=== PATIENT | male | born 1945 | race Caucasian/White ===

== ENCOUNTER → 2016-12-17 | Outpatient (CLI) | payer MEDICARE, OTHER ==
[~2016-12-17] MED LIST: CHOL20007 PO; GABA250S2 PO; GLIM1TAB2 PO; INSLANTI SC; LIS5T GT; MAGN400T5 OR; RIVA20TA PO; SIMV-8 PO; TRAM50TA2 PO
== END | disposition home or self-care (01) ==
LOC: Rad HDHVI 13:38
PROVIDERS: ATTEND Internal Medicine Cardiovascular Disease
DX: I73.9 Peripheral vascular disease, unspecified (principal); I10 Essential (primary) hypertension
CPT/HCPCS: 93306; 93926

== ENCOUNTER → 2016-12-31 | Outpatient (CLI) | payer MEDICARE, OTHER ==
[~2016-12-31] MED LIST changes: +DIPYRIDAMOLE (5MG/ML) 10 ML VIAL IV ONE; +DIPYRIDAMOLE 60 MG in D5W 5% 50 ML IV SCH
[2016-12-31 12:21] LABS: Basophils # (auto) 0 uL; Basophils % (auto) 0.6 % (0.0-2.0); CONDITION Y; Eosinophils # (auto) 0.1 uL; Eosinophils % (auto) 2.4 % (0.0-7.0); Hematocrit 40.7 % (41.0-53.0); Hemoglobin 13.6 g/dL (13.5-17.5); Lymphocytes # (auto) 1.1 uL; Lymphocytes % (auto) 25.6 % (10.0-50.0); Mean Corpuscular Hemoglobin 32.4 pg (28.0-32.0); Mean Corpuscular Hgb Conc. 33.5 g/dL (32.0-36.0); Mean Corpuscular Volume 96.8 fL (80.0-100.0); Mean Platelet Volume 10.3 fL (7.4-10.4); Monocytes # (auto) 0.3 uL; Monocytes % (auto) 6.4 % (0.0-12.0); Neutrophils # (auto) 2.9 uL; Platelet Count (auto) 149 10^3/uL (140-450); Red Cell Distribution Width 13.8 % (11.6-16.0); White Blood Cell 4.4 10^3/uL (4.4-10.8)
[2016-12-31 12:23] LABS: Urine Bilirubin Negative (Negative); Urine Blood Negative /uL (Negative); Urine Color Yellow (Yellow); Urine Glucose 4+ mg/dL (Normal); Urine Ketone Negative (Negative); Urine Nitrite Negative (Negative); Urine Urobilinogen Normal (Negative); Urine pH 5.5 (5.0-8.0)
[2016-12-31 12:37] LABS: Albumin 3.8 g/dL (3.4-5.0); BUN/Creatinine Ratio 17.5; Bilirubin, Direct 0.2 mg/dL (0-0.2); Bilirubin, Total 0.9 mg/dL (0.2-1.0); Calcium 9.2 mg/dL (8.5-10.1); Potassium 4.2 mmol/L (3.5-5.1); Total Protein 7.1 g/dL (6.4-8.2)
== END | disposition home or self-care (01) ==
LOC: Rad HDHVI 07:59
PROVIDERS: ATTEND Internal Medicine Cardiovascular Disease
DX: I10 Essential (primary) hypertension (principal); E78.00 Pure hypercholesterolemia, unspecified; K74.1 Hepatic sclerosis; E11.9 Type 2 diabetes mellitus without complications; R97.20 Elevated prostate specific antigen [PSA]; R53.81 Other malaise; E03.9 Hypothyroidism, unspecified; D64.9 Anemia, unspecified; E55.9 Vitamin D deficiency, unspecified; N39.0 Urinary tract infection, site not specified
CPT/HCPCS: 36415; 78452; 80048; 80061; 80076; 81003; 82306; 83036; 84153; 84403; 84443; 85025; 93005; 96374; 96375; A9500; J1245

== ENCOUNTER 2017-06-02 23:47 | Emergency (ER) | payer MEDICARE, OTHER ==
[~2017-06-02] VITALS: Ht 172.7 cm; Wt 90.7 kg
[~2017-06-02 23:47] MED LIST changes: -DIPYRIDAMOLE (5MG/ML) 10 ML VIAL IV ONE; -DIPYRIDAMOLE 60 MG in D5W 5% 50 ML IV SCH
[2017-06-03 00:32] LABS: Basophils # (auto) 0 uL; Basophils % (auto) 0.5 % (0.0-2.0); Eosinophils # (auto) 0.1 uL; Eosinophils % (auto) 1.3 % (0.0-7.0); Hematocrit 40.9 % (41.0-53.0); Hemoglobin 13.8 g/dL (13.5-17.5); Lymphocytes # (auto) 1.2 uL; Lymphocytes % (auto) 15.5 % (10.0-50.0); Mean Corpuscular Hemoglobin 32.7 pg (28.0-32.0); Mean Corpuscular Hgb Conc. 33.6 g/dL (32.0-36.0); Mean Corpuscular Volume 97.1 fL (80.0-100.0); Monocytes # (auto) 0.8 uL; Monocytes % (auto) 10.4 % (0.0-12.0); Neutrophils # (auto) 5.8 uL; Neutrophils % (auto) 72.3 % (37.0-80.0); Nucleated Red Blood Cells % 0.1 %; Platelet Count (auto) 123 10^3/uL (140-450); Red Blood Cells 4.21 10^6/uL (4.5-5.90); Red Cell Distribution Width 13.9 % (11.8-14.3)
[2017-06-03 00:46] LABS: Albumin 3.8 g/dL (3.4-5.0); BUN/Creatinine Ratio 16.7; Calcium 9.3 mg/dL (8.5-10.1); Potassium 4.1 mmol/L (3.5-5.1)
[2017-06-03 00:49] LABS: Bilirubin, Total 0.5 mg/dL (0.2-1.0)
[2017-06-03 03:05] VITALS: BP 121/69
== END 2017-06-03 04:28 | disposition home or self-care (01) ==
LOC: EDBD 23:47 → ER 23:55
DX: J44.1 Chronic obstructive pulmonary disease with (acute) exacerbation (principal); J06.9 Acute upper respiratory infection, unspecified; I48.91 Unspecified atrial fibrillation; E78.5 Hyperlipidemia, unspecified; I10 Essential (primary) hypertension; E11.40 Type 2 diabetes mellitus with diabetic neuropathy, unspecified
CPT/HCPCS: 36415; 71045; 80053; 85025; 93005; 94761

== ENCOUNTER → 2017-12-05 | Outpatient (CLI) | payer MEDICARE, OTHER ==
[~2017-12-05] VITALS: Ht 172.7 cm; Wt 99.3 kg
[~2017-12-05] MED LIST changes: +ADENOSINE 83 MG in GIVE UN-DILUTED 0 ML IV ONE; +ADENOSINE 90 MG/30 ML INJ IV ONE
== END | disposition home or self-care (01) ==
LOC: Rad HDHVI 08:48
PROVIDERS: ATTEND Internal Medicine Cardiovascular Disease
DX: E11.9 Type 2 diabetes mellitus without complications (principal); I48.1 Persistent atrial fibrillation; R06.02 Shortness of breath; I10 Essential (primary) hypertension; E03.9 Hypothyroidism, unspecified; E78.00 Pure hypercholesterolemia, unspecified
CPT/HCPCS: 78452; 93005; 96374; 96375; A9500; J0153

== ENCOUNTER → 2018-12-16 | Outpatient (CLI) | payer MEDICARE, OTHER ==
[~2018-12-16] MED LIST changes: -ADENOSINE 83 MG in GIVE UN-DILUTED 0 ML IV ONE; -ADENOSINE 90 MG/30 ML INJ IV ONE
== END | disposition home or self-care (01) ==
LOC: Rad HDHVI 07:53
PROVIDERS: ATTEND Internal Medicine Cardiovascular Disease
DX: I08.1 Rheumatic disorders of both mitral and tricuspid valves (principal); I70.202 Unspecified atherosclerosis of native arteries of extremities, left leg; J44.9 Chronic obstructive pulmonary disease, unspecified; I95.9 Hypotension, unspecified; E11.9 Type 2 diabetes mellitus without complications; I11.9 Hypertensive heart disease without heart failure
CPT/HCPCS: 93306; 93880

== ENCOUNTER → 2018-12-28 | Outpatient (CLI) | payer MEDICARE, OTHER ==
[~2018-12-28] VITALS: Ht 172.7 cm; Wt 84.4 kg
== END | disposition home or self-care (01) ==
LOC: Rad HDHVI 12:48
PROVIDERS: ATTEND Internal Medicine Cardiovascular Disease
DX: E78.5 Hyperlipidemia, unspecified (principal); I10 Essential (primary) hypertension; R07.89 Other chest pain
CPT/HCPCS: 78452; 93017; 96374; A9500

== ENCOUNTER → 2020-02-01 | Outpatient (CLI) | payer MEDICARE, OTHER ==
[~2020-02-01] MED LIST changes: +GLIM-5 PO; -GLIM1TAB2 PO; +MAGN400T40 OR; -MAGN400T5 OR
== END | disposition home or self-care (01) ==
LOC: Rad HDHVI 09:51
PROVIDERS: ATTEND Internal Medicine Cardiovascular Disease
DX: I25.10 Atherosclerotic heart disease of native coronary artery without angina pectoris (principal); R06.02 Shortness of breath; R07.89 Other chest pain
CPT/HCPCS: 93306

== ENCOUNTER → 2020-02-10 | Outpatient (CLI) | payer MEDICARE, OTHER ==
[~2020-02-10] VITALS: Ht 172.7 cm; Wt 88.5 kg
== END | disposition home or self-care (01) ==
LOC: Rad HDHVI 08:56
PROVIDERS: ATTEND Internal Medicine Cardiovascular Disease
DX: I25.10 Atherosclerotic heart disease of native coronary artery without angina pectoris (principal); I10 Essential (primary) hypertension; E11.42 Type 2 diabetes mellitus with diabetic polyneuropathy; E78.00 Pure hypercholesterolemia, unspecified; R06.02 Shortness of breath; Z82.49 Family history of ischemic heart disease and other diseases of the circulatory system
CPT/HCPCS: 78452; 93017; 96374; A9500

== ENCOUNTER → 2020-05-30 | Outpatient (CLI) | payer MEDICARE, OTHER ==
[2020-05-30 11:58] LABS: Potassium 4.3 mmol/L (3.5-5.1)
[2020-05-30 12:30] LABS: Bilirubin, Total 0.8 mg/dL (0.2-1.0); Calcium 8.7 mg/dL (8.5-10.1); Total Protein 7.7 g/dL (6.4-8.2)
== END | disposition home or self-care (01) ==
LOC: LAB 09:28
PROVIDERS: ATTEND Internal Medicine
DX: E11.9 Type 2 diabetes mellitus without complications (principal); I10 Essential (primary) hypertension; E78.00 Pure hypercholesterolemia, unspecified
CPT/HCPCS: 36415; 80053; 80061; 83036

== ENCOUNTER → 2022-02-04 | Outpatient (CLI) | payer MEDICARE, OTHER ==
[2022-02-04 12:47] LABS: Urine Blood Negative /uL (Negative)
[2022-02-04 12:54] LABS: Basophils # (auto) 0 10 ^3/uL (0-0.2); Basophils % (auto) 0.5 % (0.0-2.0); Eosinophils # (auto) 0.1 10 ^3/uL (0-0.8); Eosinophils % (auto) 1.3 % (0.0-7.0); Hematocrit 44.7 % (41.0-53.0); Hemoglobin 14.7 g/dL (13.5-17.5); Lymphocytes % (auto) 16.1 % (10.0-50.0); Mean Corpuscular Hemoglobin 32.1 pg (28.0-32.0); Mean Corpuscular Hgb Conc. 32.8 g/dL (32.0-36.0); Mean Corpuscular Volume 97.8 fL (80.0-100.0); Monocytes # (auto) 0.5 10 ^3/uL (0-1.3); Monocytes % (auto) 8.6 % (0.0-12.0); Neutrophils # (auto) 4.6 10 ^3/uL (1.6-8.6); Neutrophils % (auto) 73.5 % (37.0-80.0); Red Blood Cells 4.57 10^6/uL (4.5-5.90); Red Cell Distribution Width 13.5 % (11.8-14.3); White Blood Cell 6.2 10^3/uL (4.4-10.8)
[2022-02-04 13:10] LABS: Potassium 4.6 mmol/L (3.5-5.1)
[2022-02-04 13:17] LABS: Free T4 (Free Thyroxine) 0.96 ng/dL (0.89-1.76)
[2022-02-04 13:18] LABS: Prostate Specific Antigen 0.43 ng/mL (0.0-4.0)
[2022-02-04 13:24] LABS: Albumin 3.7 g/dL (3.4-5.0); BUN/Creatinine Ratio 15.8; Bilirubin, Total 0.6 mg/dL (0.2-1.0); Calcium 8.9 mg/dL (8.5-10.1); Total Protein 7.3 g/dL (6.4-8.2)
== END | disposition home or self-care (01) ==
LOC: LAB 08:02
PROVIDERS: ATTEND Internal Medicine Cardiovascular Disease
DX: C61 Malignant neoplasm of prostate (principal); D64.9 Anemia, unspecified; E11.9 Type 2 diabetes mellitus without complications; E11.65 Type 2 diabetes mellitus with hyperglycemia; E55.9 Vitamin D deficiency, unspecified; I10 Essential (primary) hypertension; D51.3 Other dietary vitamin B12 deficiency anemia; R00.2 Palpitations; R53.1 Weakness; R30.0 Dysuria
CPT/HCPCS: 36415; 80053; 80061; 81003; 82306; 82607; 83036; 84153; 84403; 84439; 84443; 85025

== ENCOUNTER → 2022-02-27 | Outpatient (CLI) | payer MEDICARE, OTHER | END | disposition home or self-care (01) | LOC: Rad HDHVI 13:31 | PROVIDERS: ATTEND Internal Medicine Cardiovascular Disease | DX: M47.816 Spondylosis without myelopathy or radiculopathy, lumbar region (principal); M51.36 Other intervertebral disc degeneration, lumbar region; M48.061 Spinal stenosis, lumbar region without neurogenic claudication; M54.50 Low back pain, unspecified | CPT/HCPCS: 72131 ==

== ENCOUNTER → 2022-10-11 | Outpatient (CLI) | payer MEDICARE, OTHER ==
[~2022-10-11] MED LIST changes: -GABA250S2 PO; +GABA250S7 PO; +GLIM-38 PO; -GLIM-5 PO; -SIMV-8 PO; +SIMV20TA20 PO
== END | disposition home or self-care (01) ==
LOC: Rad HDHVI 12:12
PROVIDERS: ATTEND Internal Medicine Cardiovascular Disease
DX: M16.12 Unilateral primary osteoarthritis, left hip (principal); M25.552 Pain in left hip
CPT/HCPCS: 73700

== ENCOUNTER → 2023-10-14 | Outpatient (CLI) | payer MEDICARE, OTHER ==
[~2023-10-14] VITALS: Ht 170.2 cm; Wt 74.8 kg
[~2023-10-14] MED LIST changes: +ACET-1881 PO; +ADENOSINE 63 MG in GIVE UN-DILUTED 0 ML IV ONE; +ADENOSINE 90 MG/30 ML INJ IV ONE; +DOCU-94 PO; +EMPA1TAB PO; +INSU100I28 IJ; +MEMA1TAB5 PO; +METO25TA36 PO
== END | disposition home or self-care (01) ==
LOC: Rad HDHVI 13:33
PROVIDERS: ATTEND Internal Medicine Cardiovascular Disease
DX: Z01.810 Encounter for preprocedural cardiovascular examination (principal); I10 Essential (primary) hypertension; E11.9 Type 2 diabetes mellitus without complications; E78.5 Hyperlipidemia, unspecified; I48.0 Paroxysmal atrial fibrillation; Z82.49 Family history of ischemic heart disease and other diseases of the circulatory system
CPT/HCPCS: 78452; 93005; 96374; 96375; A9500; J0153

== ENCOUNTER 2023-10-21 08:17 | Inpatient (IN) | payer MEDICARE, OTHER ==
[2023-10-21] VITALS (10 sets, daily range): BP systolic 104–135; BP diastolic 60–81; PULSE 80–124; RESP 14–20; TEMP 97.6–97.8; O2SAT 91–98
[~2023-10-21] VITALS: Ht 170.2 cm; Wt 82.7 kg
[2023-10-21] MEDS: TRANEXAMIC ACID 20 ML ONE (07:07)
[2023-10-21] MEDS: KETOROLAC TROMETH 30 MG/ML 1ML VIAL ONE (07:07)
[~2023-10-21 08:17] MED LIST changes: -ADENOSINE 63 MG in GIVE UN-DILUTED 0 ML IV ONE; -ADENOSINE 90 MG/30 ML INJ IV ONE; -CHOL20007 PO; -DOCU-94 PO; -GABA250S7 PO; -GLIM-38 PO; -LIS5T GT; -MAGN400T40 OR; -TRAM50TA2 PO
[2023-10-21] MEDS: BUPIVACAINE 0.25% INJ 50ML VIAL ONE (08:28)
[2023-10-21] MEDS ORDERED: MORPHINE SULF PF 5 MG/10 ML VIAL ONE ×2 (08:29→09:00)
[2023-10-21] MEDS: ceFAZolin 2 GM/D5W50ml 50 ML IV ONE (08:54)
[2023-10-21] MEDS ORDERED: fentaNYL CITRATE 100 MCG/2 ML VL ONE (09:00)
[2023-10-21] MEDS ORDERED: MIDAZOLAM HCL 2MG/2ML 2ml VIAL (1mg/ml) ONE (09:01)
[2023-10-21] MEDS ORDERED: PROPOFOL 10 MG/ML 20 ML IV ONE (09:02)
[2023-10-21] MEDS: TETRACAINE 1% INJ 2 ML VIAL IJ ONE (09:29)
[2023-10-21] MEDS ORDERED: MIDAZOLAM HCL 2MG/2ML 2ml VIAL (1mg/ml) IV PRN (10:15)
[2023-10-21] MEDS ORDERED: ONDANSETRON HCL 4 MG/2 ML VIAL IV PRN (10:15)
[2023-10-21] MEDS ORDERED: LABETALOL HCL 5 MG/ML 4ML SYRINGE IV PRN (10:15)
[2023-10-21] MEDS ORDERED: DexAMETHasone SOD PHOS 10MG/1ML VIAL INJ IV PRN (10:15)
[2023-10-21] MEDS ORDERED: NALOXONE HCL 0.4 MG/ML VIAL IV PRN (10:15)
[2023-10-21] MEDS ORDERED: ePHEDrine SULFATE 50 MG/ML AMP IV PRN (10:15)
[2023-10-21] MEDS ORDERED: HYDROmorphone HCL 2 MG/ML VL/or syr IV PRN (10:15)
[2023-10-21] MEDS: VANCOMYCIN HCL 1000 MG VL ONE ×2 (10:20)
[2023-10-21] MEDS: EPINEPHrine HCL 1 MG/1 ML AMP ONE (10:21)
[2023-10-21] MEDS ORDERED: DEXTROSE (50%) 50ML SYRG IV PRN (11:30)
[2023-10-21] MEDS: InsuLIN REG 1unit/0.01ml Soln (100units/ml) SC SCH ×2 (11:30→21:35)
[2023-10-21] MEDS: ACCU-CHEK COMFORT CURVE STRIP VI SCH (11:30)
[2023-10-21] MEDS ORDERED: oxyCODONE HCL 5MG TAB PO PRN (11:30)
[2023-10-21] MEDS: ACETAMINOPHEN 325 MG TAB PO SCH (12:00)
[2023-10-21] MEDS: SODIUM CHLORIDE 0.9% 1,000 ML IV SCH (12:30)
[2023-10-21] MEDS: ATORVASTATIN 20 MG TAB PO SCH (18:16)
[2023-10-21] MEDS: ceFAZolin 2 GM/D5W50ml 50 ML IV SCH (18:31)
[2023-10-21] MEDS: LORazepam 2MG/ML-1ML VIAL IV PRN (19:54)
[2023-10-21] MEDS: PREGABALIN 25 MG CAP PO SCH (20:59)
[2023-10-21] MEDS: MEMANTINE HCL 5 MG TAB PO SCH (20:59)
[2023-10-22] VITALS (16 sets, daily range): BP systolic 95–134; BP diastolic 61–81; PULSE 87–122; RESP 18–21; TEMP 98–98.8; O2SAT 17–98
[2023-10-22] MEDS: ONDANSETRON HCL 4 MG/2 ML VIAL IV PRN (01:34)
[2023-10-22 07:00] LABS: Anion Gap 6 (5-15); Carbon Dioxide 28 mmol/L (20-30); Chloride 107 mmol/L (98-107); Potassium 4.4 mmol/L (3.5-5.1); Sodium 141 mmol/L (136-145)
[2023-10-22 07:01] LABS: Calcium 9.5 mg/dL (8.5-10.1)
[2023-10-22 07:02] LABS: Basophils # (auto) 0 10 ^3/uL (0-0.2); Basophils % (auto) 0.1 % (0.0-2.0); Eosinophils # (auto) 0 10 ^3/uL (0-0.8); Hematocrit 39.7 % (41.0-53.0); Hemoglobin 13.5 g/dL (13.5-17.5); Lymphocytes # (auto) 0.9 10 ^3/uL (0.4-5.4); Lymphocytes % (auto) 7.5 % (10.0-50.0); Mean Corpuscular Hemoglobin 33.5 pg (28.0-32.0); Mean Corpuscular Hgb Conc. 33.9 g/dL (32.0-36.0); Monocytes # (auto) 1.2 10 ^3/uL (0-1.3); Monocytes % (auto) 10.6 % (0.0-12.0); Neutrophils # (auto) 9.3 10 ^3/uL (1.6-8.6); Neutrophils % (auto) 81.8 % (37.0-80.0); Nucleated Red Blood Cells % 0.1 %; Red Blood Cells 4.01 10^6/uL (4.5-5.90); Red Cell Distribution Width 13.1 % (11.8-14.3); White Blood Cell 11.4 10^3/uL (4.4-10.8)
[2023-10-22 07:06] LABS: BUN/Creatinine Ratio 17.6 (10.0-20.0); Blood Urea Nitrogen 15 mg/dL (9-23); Glucose 152 mg/dL (74-106)
[2023-10-22 08:03] LABS: Platelet Estimate Decreased
[2023-10-22] MEDS: APIXABAN 2.5 MG TAB PO SCH (09:35)
[2023-10-22] MEDS: METOPROLOL SUCCINATE XL 50 MG TAB PO SCH (09:37)
[2023-10-22] MEDS: oxyCODONE HCL 5MG TAB PO PRN (21:40)
[2023-10-22] MEDS: DIGOXIN (250MCG/ML) 2 ML AMPULE IV ONE (23:24)
[2023-10-23] VITALS (7 sets, daily range): BP systolic 134–144; BP diastolic 73–85; PULSE 105–137; RESP 16–20; TEMP 98–99.6; O2SAT 92–96
[2023-10-23] MEDS: DIGOXIN (250MCG/ML) 2 ML AMPULE IV ONE (00:59)
[2023-10-23 06:01] LABS: Basophils # (auto) 0 10 ^3/uL (0-0.2); Basophils % (auto) 0.3 % (0.0-2.0); Eosinophils # (auto) 0 10 ^3/uL (0-0.8); Eosinophils % (auto) 0.2 % (0.0-7.0); Hematocrit 42.2 % (41.0-53.0); Hemoglobin 14.2 g/dL (13.5-17.5); Lymphocytes # (auto) 0.9 10 ^3/uL (0.4-5.4); Lymphocytes % (auto) 8.9 % (10.0-50.0); Mean Corpuscular Hemoglobin 33.4 pg (28.0-32.0); Mean Corpuscular Hgb Conc. 33.7 g/dL (32.0-36.0); Mean Corpuscular Volume 99.1 fL (80.0-100.0); Monocytes # (auto) 1.1 10 ^3/uL (0-1.3); Monocytes % (auto) 10.9 % (0.0-12.0); Neutrophils # (auto) 7.7 10 ^3/uL (1.6-8.6); Neutrophils % (auto) 79.7 % (37.0-80.0); Nucleated Red Blood Cells % 0.2 %; Red Blood Cells 4.26 10^6/uL (4.5-5.90); Red Cell Distribution Width 13.6 % (11.8-14.3); White Blood Cell 9.7 10^3/uL (4.4-10.8)
[2023-10-23 06:15] LABS: Anion Gap 14 (5-15); Carbon Dioxide 24 mmol/L (20-30); Chloride 103 mmol/L (98-107); Potassium 4.3 mmol/L (3.5-5.1); Sodium 141 mmol/L (136-145)
[2023-10-23 06:16] LABS: Calcium 9.5 mg/dL (8.7-10.4)
[2023-10-23 06:21] LABS: BUN/Creatinine Ratio 14.1 (10.0-20.0); Blood Urea Nitrogen 11 mg/dL (9-23); Glucose 121 mg/dL (74-106)
[2023-10-23] MEDS: APIXABAN 2.5 MG TAB PO SCH (10:00)
[2023-10-23] MEDS: AMIODARONE HCL 200 MG TAB PO SCH (10:28)
[2023-10-24] VITALS (8 sets, daily range): BP systolic 111–140; BP diastolic 63–89; PULSE 66–137; RESP 18–20; TEMP 98–98.7; O2SAT 92–96
[2023-10-25 01:00] VITALS: BP 128/78; PULSE 93; RESP 16; TEMP 98; O2SAT 96
[2023-10-25 05:00] VITALS: BP 140/80; PULSE 109; RESP 18; TEMP 98; O2SAT 96
[2023-10-25 08:05] VITALS: O2SAT 94
[2023-10-25 09:00] VITALS: BP 136/85; PULSE 133; RESP 20; TEMP 98.8; O2SAT 92
[2023-10-25 13:00] VITALS: BP 127/64; PULSE 100; RESP 20; TEMP 98.7; O2SAT 96
== END 2023-10-25 15:40 | DRG 470 ==
LOC: SUR 08:17 → TELE 11:47 → TELE-WESTW 17:01
PROVIDERS: ADMIT Orthopaedic Surgery; ATTEND Orthopaedic Surgery
PROC: 0SRB06Z Replacement of Left Hip Joint with Oxidized Zirconium on Polyethylene Synthetic Substitute, Open Approach (ICD-10-PCS; principal; 2023-10-21 09:26)
DX: M16.12 Unilateral primary osteoarthritis, left hip (principal); I48.20 Chronic atrial fibrillation, unspecified; E11.40 Type 2 diabetes mellitus with diabetic neuropathy, unspecified; I25.10 Atherosclerotic heart disease of native coronary artery without angina pectoris; I10 Essential (primary) hypertension; Z79.4 Long term (current) use of insulin; Z79.899 Other long term (current) drug therapy; E11.21 Type 2 diabetes mellitus with diabetic nephropathy
CPT/HCPCS: 36415; 72170; 73502; 80048; 82962; 85025; 86850; 86900; 86901; 93971; 97110; 97116; 97163; 97530; A4565; G0378; J0171; J1815; J1885; J2250; J2405; J2704; J3490

== ENCOUNTER 2023-12-18 14:30 | Inpatient (IN) | payer MEDICARE, OTHER ==
[~2023-12-18] VITALS: Ht 170.2 cm; Wt 72.7 kg
[2023-12-18] MEDS: SODIUM CHLORIDE 0.9% 1,000 ML IVB ONE (15:49)
[2023-12-18] MEDS: dilTIAZem 25 MG/5 ML VIAL IV ONE (15:50)
[2023-12-18 16:21] LABS: Basophils # (auto) 0 10 ^3/uL (0-0.2); Basophils % (auto) 0.3 % (0.0-2.0); Eosinophils # (auto) 0.1 10 ^3/uL (0-0.8); Eosinophils % (auto) 0.6 % (0.0-7.0); Hematocrit 45.2 % (41.0-53.0); Hemoglobin 14.7 g/dL (13.5-17.5); Lymphocytes % (auto) 8.2 % (10.0-50.0); Mean Corpuscular Hemoglobin 33.2 pg (28.0-32.0); Mean Corpuscular Hgb Conc. 32.5 g/dL (32.0-36.0); Mean Corpuscular Volume 102.2 fL (80.0-100.0); Neutrophils # (auto) 10.2 10 ^3/uL (1.6-8.6); Neutrophils % (auto) 82.9 % (37.0-80.0); Nucleated Red Blood Cells % 0.1 %; Platelet Count (auto) 119 10^3/uL (140-450); Red Blood Cells 4.43 10^6/uL (4.5-5.90); Red Cell Distribution Width 15.2 % (11.8-14.3); White Blood Cell 12.3 10^3/uL (4.4-10.8)
[2023-12-18 16:26] VITALS: PULSE 125; RESP 19; O2SAT 96
[2023-12-18 16:37] LABS: Chloride 129 mmol/L (98-107); Potassium 4.4 mmol/L (3.5-5.1)
[2023-12-18 16:38] LABS: Anion Gap 13 (5-15); Calcium 9.9 mg/dL (8.7-10.4); Carbon Dioxide 22 mmol/L (20-30)
[2023-12-18 16:43] LABS: Glucose 263 mg/dL (74-106)
[2023-12-18 16:44] LABS: BUN/Creatinine Ratio 23.5 (10.0-20.0); Blood Urea Nitrogen 61 mg/dL (9-23); Magnesium 2.4 mg/dL (1.6-2.6)
[2023-12-18 16:53] LABS: Sodium 164 mmol/L (136-145)
[2023-12-18 17:28] LABS: Lactic Acid w/Reflex 2.7 mmol/L (0.4-2.0)
[2023-12-18] MEDS ORDERED: dilTIAZem 125mg/125ml BAG KIT 125 ML IV ONE (18:15)
[2023-12-18] MEDS ORDERED: DEXTROSE (50%) 50ML SYRG IV PRN (18:30)
[2023-12-18] MEDS: AMIODARONE BOLUS KIT 100 ML IV ONE (19:01)
[2023-12-18 19:22] LABS: COVID19 ANTIGEN SOFIA FIA NEGATIVE (NEGATIVE)
[2023-12-18] MEDS: AMIODARONE 450mg/250ml AE 250 ML IV ONE (19:24)
[2023-12-18] MEDS: D5W 5% 1,000 ML IV ONE ×2 (19:36→19:50)
[2023-12-18 19:38] LABS: Amphetamine Screen, Urine Neg (NEGATIVE); Barbiturate Scree,Urine Neg (NEGATIVE); Benzodiazephine Screen, Urine Neg (NEGATIVE); Cocaine Screen, Urine Neg (NEGATIVE); Opiate Scree,Urine Neg (NEGATIVE); Phencyclidine Screen, Urine Neg (NEGATIVE)
[2023-12-18 19:39] LABS: Cannabinoid Screen, Urine Neg (NEGATIVE)
[2023-12-18 19:40] LABS: Urine Bacteria MOD /hpf (None Seen); Urine Blood 2+ /uL (Negative); Urine Budding Yeast LOADED /hpf (None Seen); Urine Clarity Ex.Turbid (Clear); Urine Color Brown (Yellow); Urine Protein, UAD 1+ (Negative); Urine Specific Gravity 1.015 (1.001-1.035); Urine Urobilinogen Normal (Negative); Urine WBC 4095 /hpf (0 - 3); Urine WBC Clumps PRESENT /hpf (None Seen); Urine pH 5.5 (5.0-9.0)
[2023-12-18] MEDS: AMIODARONE 450mg/250ml AE 250 ML IV SCH (19:51)
[2023-12-18 19:58] LABS: Chloride 129 mmol/L (98-107); Potassium 4.6 mmol/L (3.5-5.1)
[2023-12-18 19:59] LABS: Anion Gap 12 (5-15); Calcium 9.7 mg/dL (8.7-10.4); Carbon Dioxide 24 mmol/L (20-30)
[2023-12-18 20:04] LABS: BUN/Creatinine Ratio 22.3 (10.0-20.0); Blood Urea Nitrogen 59 mg/dL (9-23); Glucose 274 mg/dL (74-106)
[2023-12-18 20:13] LABS: Sodium 165 mmol/L (136-145)
[2023-12-18] MEDS ORDERED: D5W 5% 500 ML IV ONE ×2 (20:40→21:00)
[2023-12-18] MEDS: D5W 5% 500 ML IV ONE (21:10)
[2023-12-18] MEDS: MEMANTINE HCL 5 MG TAB PO SCH (21:41)
[2023-12-18] MEDS: ACCU-CHEK COMFORT CURVE STRIP VI SCH (22:27)
[2023-12-18] MEDS: cefTRIAXone 1GM/50ML D5W 50 ML IV SCH (22:27)
[2023-12-18] MEDS: InsuLIN REG 1unit/0.01ml Soln (100units/ml) SC SCH (22:30)
[2023-12-18] MEDS: INSULIN LANTUS (GLARGINE) 1 /0.01ml (100units/ml) SC SCH (22:32)
[2023-12-18] MEDS: FLUCONAZOLE 200MG/100ML 100 ML IV SCH (23:00)
[2023-12-19 00:15] LABS: Chloride 127 mmol/L (98-107); Potassium 4.9 mmol/L (3.5-5.1)
[2023-12-19 00:18] LABS: Anion Gap 8 (5-15); Calcium 9.3 mg/dL (8.7-10.4); Carbon Dioxide 24 mmol/L (20-30)
[2023-12-19 00:23] LABS: BUN/Creatinine Ratio 23.4 (10.0-20.0); Blood Urea Nitrogen 61 mg/dL (9-23)
[2023-12-19 00:31] LABS: Sodium 159 mmol/L (136-145)
[2023-12-19 00:33] LABS: Glucose 440 mg/dL (74-106)
[2023-12-19] MEDS: SOD CHL 0.45% 500 ML IV ONE (00:52)
[2023-12-19] MEDS: AMIODARONE 450mg/250ml AE 250 ML IV SCH (00:56)
[2023-12-19] MEDS ORDERED: DEXTROSE (50%) 50ML SYRG IV PRN (01:15)
[2023-12-19] MEDS: ACCU-CHEK COMFORT CURVE STRIP VI SCH ×2 (02:33→12:24)
[2023-12-19] MEDS: InsuLIN REG 1unit/0.01ml Soln (100units/ml) SC SCH ×2 (02:39→12:00)
[2023-12-19 02:55] LABS: Chloride 126 mmol/L (98-107); Sodium 159 mmol/L (136-145)
[2023-12-19 02:56] LABS: Anion Gap 8 (5-15); Calcium 8.9 mg/dL (8.7-10.4); Carbon Dioxide 25 mmol/L (20-30)
[2023-12-19 03:01] LABS: BUN/Creatinine Ratio 26.4 (10.0-20.0); Blood Urea Nitrogen 65 mg/dL (9-23); Glucose 364 mg/dL (74-106)
[2023-12-19 06:50] LABS: Anion Gap 9 (5-15); Carbon Dioxide 25 mmol/L (20-30); Chloride 126 mmol/L (98-107); Potassium 3.6 mmol/L (3.5-5.1); Sodium 160 mmol/L (136-145)
[2023-12-19 06:52] LABS: Calcium 9.3 mg/dL (8.7-10.4)
[2023-12-19 06:57] LABS: BUN/Creatinine Ratio 22.8 (10.0-20.0)
[2023-12-19 06:58] LABS: Blood Urea Nitrogen 53 mg/dL (9-23); Glucose 191 mg/dL (74-106)
[2023-12-19] MEDS ORDERED: InsuLIN REG 1unit/0.01ml Soln (100units/ml) SC SCH (07:00)
[2023-12-19 08:58] LABS: Basophils # (auto) 0 10 ^3/uL (0-0.2); Basophils % (auto) 0.4 % (0.0-2.0); Eosinophils # (auto) 0.2 10 ^3/uL (0-0.8); Hemoglobin 13.6 g/dL (13.5-17.5); Neutrophils % (auto) 80.1 % (37.0-80.0)
[2023-12-19 09:00] VITALS: PULSE 108; RESP 21; O2SAT 96
[2023-12-19 09:01] LABS: Eosinophils % (auto) 2.3 % (0.0-7.0); Hematocrit 41.4 % (41.0-53.0); Lymphocytes % (auto) 10.9 % (10.0-50.0); Mean Corpuscular Hemoglobin 33.3 pg (28.0-32.0); Mean Corpuscular Hgb Conc. 32.8 g/dL (32.0-36.0); Mean Corpuscular Volume 101.5 fL (80.0-100.0); Monocytes # (auto) 0.6 10 ^3/uL (0-1.3); Monocytes % (auto) 6.3 % (0.0-12.0); Nucleated Red Blood Cells % 0.1 %; Platelet Count (auto) 90 10^3/uL (140-450); Red Blood Cells 4.08 10^6/uL (4.5-5.90); Red Cell Distribution Width 14.8 % (11.8-14.3); White Blood Cell 8.7 10^3/uL (4.4-10.8)
[2023-12-19 09:05] LABS: Folate (Folic Acid) 18.19 ng/mL (>5.38)
[2023-12-19 09:47] LABS: Alanine Aminotransferase 26 U/L (7-40); Alkaline Phosphatase 69 U/L (46-116); Anion Gap 11 (5-15); Blood Urea Nitrogen 49 mg/dL (9-23); Calcium 9.4 mg/dL (8.7-10.4); Carbon Dioxide 23 mmol/L (20-30); Chloride 127 mmol/L (98-107); Glucose 110 mg/dL (74-106); Magnesium 2.1 mg/dL (1.6-2.6); Potassium 3.4 mmol/L (3.5-5.1)
[2023-12-19 09:48] LABS: Albumin 3.6 g/dL (3.2-4.8); Aspartate Aminotransferase 29 U/L (13-40)
[2023-12-19 09:49] LABS: Bilirubin, Total 0.6 mg/dL (0.2-1.0); Total Protein 6.1 g/dL (5.7-8.2)
[2023-12-19] MEDS: RIVAROXABAN 20 MG TAB PO SCH (10:00)
[2023-12-19] MEDS: METOPROLOL SUCCINATE XL 50 MG TAB PO SCH (10:00)
[2023-12-19] MEDS: D5W 5% 1,000 ML IV ONE (10:00)
[2023-12-19 10:02] LABS: Creatinine, Urine 71.42 mg/dL (30.0-125.0)
[2023-12-19 10:08] LABS: Lactic Acid w/Reflex 2.9 mmol/L (0.4-2.0); Sodium 161 mmol/L (136-145)
[2023-12-19] MEDS: ENOXAPARIN SOD 30 MG/0.3 ML SYRINGE SC SCH (10:31)
[2023-12-19] MEDS: PANTOPRAZOLE 40 MG/10 ML VIAL INJ IV SCH (10:31)
[2023-12-19] MEDS: POTASSIUM CHL 20MEQ/100ML 100 ML IV ONE (13:04)
[2023-12-19 13:36] LABS: Chloride 128 mmol/L (98-107); Potassium 3.7 mmol/L (3.5-5.1); Sodium 160 mmol/L (136-145)
[2023-12-19 13:37] LABS: Anion Gap 10 (5-15); Carbon Dioxide 22 mmol/L (20-30)
[2023-12-19 13:42] LABS: BUN/Creatinine Ratio 34.3 (10.0-20.0); Glucose 86 mg/dL (74-106)
[2023-12-19 13:47] LABS: Blood Urea Nitrogen 69 mg/dL (9-23)
[2023-12-19] MEDS: D5W/SOD CHL 0.2% 1,000 ML IV ONE (15:20)
[2023-12-19] MEDS: ATORVASTATIN 20 MG TAB PO SCH (18:08)
[2023-12-19 19:30] VITALS: PULSE 100; RESP 16; O2SAT 99
[2023-12-19] MEDS: D5W 5% 1,000 ML IV SCH (19:30)
[2023-12-20 07:30] VITALS: PULSE 98; RESP 17; O2SAT 100
[2023-12-20] MEDS ORDERED: D5W 5% 1,000 ML IV SCH (12:45)
[2023-12-20 14:03] LABS: Basophils # (auto) 0 10 ^3/uL (0-0.2); Basophils % (auto) 0.2 % (0.0-2.0); Eosinophils # (auto) 0.3 10 ^3/uL (0-0.8); Hemoglobin 14.9 g/dL (13.5-17.5); Lymphocytes # (auto) 0.8 10 ^3/uL (0.4-5.4); Monocytes # (auto) 0.6 10 ^3/uL (0-1.3); White Blood Cell 8.8 10^3/uL (4.4-10.8)
[2023-12-20 14:06] LABS: Eosinophils % (auto) 3.5 % (0.0-7.0); Hematocrit 46.3 % (41.0-53.0); Lymphocytes % (auto) 8.5 % (10.0-50.0); Mean Corpuscular Hemoglobin 33.3 pg (28.0-32.0); Mean Corpuscular Hgb Conc. 32.2 g/dL (32.0-36.0); Mean Corpuscular Volume 103.3 fL (80.0-100.0); Monocytes % (auto) 6.7 % (0.0-12.0); Neutrophils # (auto) 7.2 10 ^3/uL (1.6-8.6); Neutrophils % (auto) 81.1 % (37.0-80.0); Nucleated Red Blood Cells % 0.2 %; Platelet Count (auto) 61 10^3/uL (140-450); Red Blood Cells 4.48 10^6/uL (4.5-5.90); Red Cell Distribution Width 14.9 % (11.8-14.3)
[2023-12-20 14:17] LABS: Potassium 3.4 mmol/L (3.5-5.1); Sodium 148 mmol/L (136-145)
[2023-12-20 14:18] LABS: Anion Gap 8 (5-15); Carbon Dioxide 25 mmol/L (20-30)
[2023-12-20 14:23] LABS: BUN/Creatinine Ratio 16.9 (10.0-20.0); Glucose 147 mg/dL (74-106); Triglycerides 137 mg/dL (< 150)
[2023-12-20 14:24] LABS: LDL Cholesterol 75 mg/dL (< 100); Magnesium 1.7 mg/dL (1.6-2.6)
[2023-12-20 14:25] LABS: Cholesterol 126 mg/dL (< 200); HDL Cholesterol 24 mg/dL (40-59); Phosphorus 2.2 mg/dL (2.4-5.1)
[2023-12-20 14:27] LABS: Blood Urea Nitrogen 27 mg/dL (9-23); Chloride 115 mmol/L (98-107)
[2023-12-20 15:36] LABS: INR 1.31 (0.9-1.15); Partial Thromboplastin Time 27.2 SEC (24.5-34.5); Prothrombin Time 13.6 sec (9.3-11.8)
[2023-12-20 15:55] LABS: Lactic Acid w/Reflex 3.1 mmol/L (0.4-2.0)
[2023-12-20] MEDS: D5W 5% 1,000 ML IV SCH (20:40)
[2023-12-20] MEDS: POTASSIUM PHOSPHATE 22 MEQ in SODIUM CHL 0.9% 100 ML IV ONE (20:40)
[2023-12-20] MEDS: POTASSIUM CHL 20MEQ/100ML 100 ML IV ONE (20:40)
[2023-12-21] VITALS (7 sets, daily range): BP systolic 105–138; BP diastolic 58–80; PULSE 96–109; RESP 16–20; TEMP 97.7–100; O2SAT 93–100
[2023-12-21] MEDS: DEXTROSE (50%) 50ML SYRG IV PRN (04:30)
[2023-12-21 05:16] LABS: Basophils # (auto) 0 10 ^3/uL (0-0.2); Basophils % (auto) 0.2 % (0.0-2.0); Eosinophils # (auto) 0.1 10 ^3/uL (0-0.8); Eosinophils % (auto) 1.9 % (0.0-7.0); Hemoglobin 11.4 g/dL (13.5-17.5); Lymphocytes # (auto) 0.7 10 ^3/uL (0.4-5.4); Lymphocytes % (auto) 9.2 % (10.0-50.0); Mean Corpuscular Hemoglobin 33.2 pg (28.0-32.0); Mean Corpuscular Hgb Conc. 33.6 g/dL (32.0-36.0); Mean Corpuscular Volume 98.7 fL (80.0-100.0); Monocytes # (auto) 0.6 10 ^3/uL (0-1.3); Monocytes % (auto) 7.8 % (0.0-12.0); Neutrophils # (auto) 6.1 10 ^3/uL (1.6-8.6); Neutrophils % (auto) 80.9 % (37.0-80.0); Platelet Count (auto) 68 10^3/uL (140-450); Red Blood Cells 3.44 10^6/uL (4.5-5.90); Red Cell Distribution Width 14.1 % (11.8-14.3); White Blood Cell 7.5 10^3/uL (4.4-10.8)
[2023-12-21 05:20] LABS: Anion Gap 6 (5-15); Calcium 7.9 mg/dL (8.7-10.4); Carbon Dioxide 26 mmol/L (20-30); Chloride 114 mmol/L (98-107); Potassium 3.5 mmol/L (3.5-5.1); Sodium 146 mmol/L (136-145)
[2023-12-21 05:25] LABS: Glucose 198 mg/dL (74-106)
[2023-12-21 05:26] LABS: BUN/Creatinine Ratio 15.6 (10.0-20.0); Blood Urea Nitrogen 21 mg/dL (9-23)
[2023-12-21 05:27] LABS: Magnesium 1.4 mg/dL (1.6-2.6); Phosphorus 2.6 mg/dL (2.4-5.1)
[2023-12-21] MEDS ORDERED: ATOR10TA52 PO (10:19)
[2023-12-21] MEDS ORDERED: MULT-1018 PO (10:19)
[2023-12-21] MEDS ORDERED: GLUC1TAB22 PO (10:19)
[2023-12-21] MEDS ORDERED: CHOL20007 PO (10:19)
[2023-12-21] MEDS ORDERED: ASCO500T11 PO (10:19)
[2023-12-21] MEDS: AMIODARONE HCL 200 MG TAB PO ONE (12:14)
[2023-12-21] MEDS: LIDOCAINE 1% (LOCAL ANESTH.) PF 5ml SDV ID ONE (13:00)
[2023-12-21] MEDS: MAGNESIUM SULFATE 1GM/100ML 100 ML IV ONE (16:42)
[2023-12-21] MEDS: SODIUM CHLOR 0.9% PF (SALINE LOCK) 10ML VIAL/SYR IV SCH (22:22)
[2023-12-22] VITALS (9 sets, daily range): BP systolic 101–150; BP diastolic 37–78; PULSE 61–96; RESP 14–18; TEMP 97.9–98.6; O2SAT 91–99
[2023-12-22 06:59] LABS: Basophils # (auto) 0 10 ^3/uL (0-0.2); Basophils % (auto) 0.1 % (0.0-2.0); Eosinophils # (auto) 0.1 10 ^3/uL (0-0.8); Eosinophils % (auto) 0.8 % (0.0-7.0); Hematocrit 36.2 % (41.0-53.0); Lymphocytes # (auto) 0.8 10 ^3/uL (0.4-5.4); Lymphocytes % (auto) 10.1 % (10.0-50.0); Mean Corpuscular Hemoglobin 32.7 pg (28.0-32.0); Mean Corpuscular Hgb Conc. 33.2 g/dL (32.0-36.0); Mean Corpuscular Volume 98.4 fL (80.0-100.0); Monocytes # (auto) 0.8 10 ^3/uL (0-1.3); Monocytes % (auto) 10.1 % (0.0-12.0); Neutrophils # (auto) 6.5 10 ^3/uL (1.6-8.6); Neutrophils % (auto) 78.9 % (37.0-80.0); Nucleated Red Blood Cells % 0.1 %; Platelet Count (auto) 68 10^3/uL (140-450); Red Blood Cells 3.68 10^6/uL (4.5-5.90); Red Cell Distribution Width 13.6 % (11.8-14.3); White Blood Cell 8.2 10^3/uL (4.4-10.8)
[2023-12-22 07:25] LABS: Alanine Aminotransferase 19 U/L (7-40); Albumin 3.1 g/dL (3.2-4.8); Alkaline Phosphatase 57 U/L (46-116); Anion Gap 7 (5-15); Aspartate Aminotransferase 28 U/L (13-40); BUN/Creatinine Ratio 10.7 (10.0-20.0); Blood Urea Nitrogen 13 mg/dL (9-23); Calcium 8.5 mg/dL (8.7-10.4); Carbon Dioxide 24 mmol/L (20-30); Chloride 111 mmol/L (98-107); Glucose 104 mg/dL (74-106); Magnesium 1.8 mg/dL (1.6-2.6); Potassium 3.4 mmol/L (3.5-5.1); Sodium 142 mmol/L (136-145)
[2023-12-22 07:26] LABS: Bilirubin, Total 0.5 mg/dL (0.2-1.0); Phosphorus 2.5 mg/dL (2.4-5.1); Total Protein 5.2 g/dL (5.7-8.2)
[2023-12-22] MEDS: POTASSIUM EFFERVESENT TAB 25 MEQ PO ONE (10:57)
[2023-12-22] MEDS: D5W/SOD CHLO 0.9% 1,000 ML IV SCH (15:20)
[2023-12-23] VITALS (8 sets, daily range): BP systolic 110–138; BP diastolic 53–91; PULSE 64–109; RESP 16–94; TEMP 97.8–98.8; O2SAT 92–99
[2023-12-23 10:45] LABS: Basophils # (auto) 0 10 ^3/uL (0-0.2); Basophils % (auto) 0.1 % (0.0-2.0); Eosinophils # (auto) 0.1 10 ^3/uL (0-0.8); Hematocrit 33.4 % (41.0-53.0); Hemoglobin 11.1 g/dL (13.5-17.5); Lymphocytes # (auto) 0.5 10 ^3/uL (0.4-5.4); Lymphocytes % (auto) 7.7 % (10.0-50.0); Mean Corpuscular Hemoglobin 32.2 pg (28.0-32.0); Mean Corpuscular Hgb Conc. 33.2 g/dL (32.0-36.0); Mean Corpuscular Volume 97.2 fL (80.0-100.0); Monocytes # (auto) 0.6 10 ^3/uL (0-1.3); Monocytes % (auto) 8.3 % (0.0-12.0); Neutrophils # (auto) 5.8 10 ^3/uL (1.6-8.6); Neutrophils % (auto) 81.9 % (37.0-80.0); Platelet Count (auto) 75 10^3/uL (140-450); Red Blood Cells 3.43 10^6/uL (4.5-5.90); White Blood Cell 7.1 10^3/uL (4.4-10.8)
[2023-12-23 10:54] LABS: Chloride 110 mmol/L (98-107); Potassium 3.2 mmol/L (3.5-5.1); Sodium 141 mmol/L (136-145)
[2023-12-23 10:55] LABS: Anion Gap 6 (5-15); Carbon Dioxide 25 mmol/L (20-30)
[2023-12-23 10:56] LABS: Calcium 7.9 mg/dL (8.7-10.4)
[2023-12-23 11:00] LABS: Glucose 158 mg/dL (74-106)
[2023-12-23 11:01] LABS: BUN/Creatinine Ratio 7.4 (10.0-20.0); Blood Urea Nitrogen 7 mg/dL (9-23)
[2023-12-23] MEDS: POTASSIUM EFFERVESENT TAB 25 MEQ PO ONE (13:02)
[2023-12-23] MEDS: POTASSIUM CHL 20MEQ/100ML 100 ML IV SCH (17:55)
[2023-12-23] MEDS: IPRATROPIUM BROM 0.5 MG/2.5ML INH SOL NEB SCH (22:25)
[2023-12-23] MEDS: ACETYLCYSTEINE 20%(200MG/ML) SOL 4ML NEB SCH (22:25)
[2023-12-24] VITALS (12 sets, daily range): BP systolic 117–147; BP diastolic 69–71; PULSE 86–107; RESP 16–20; TEMP 97.1–98.5; O2SAT 92–100
[2023-12-25] VITALS (16 sets, daily range): BP systolic 106–148; BP diastolic 65–84; PULSE 82–113; RESP 12–20; TEMP 97.8–98.6; O2SAT 92–100
[2023-12-25] MEDS: AMIODARONE 450mg/250ml AE 250 ML IV SCH (03:55)
[2023-12-25 05:54] LABS: Basophils # (auto) 0 10 ^3/uL (0-0.2); Basophils % (auto) 0.2 % (0.0-2.0); Eosinophils # (auto) 0.2 10 ^3/uL (0-0.8); Lymphocytes # (auto) 0.8 10 ^3/uL (0.4-5.4); Lymphocytes % (auto) 13.7 % (10.0-50.0); Mean Corpuscular Hemoglobin 32.7 pg (28.0-32.0); Mean Corpuscular Hgb Conc. 34.2 g/dL (32.0-36.0); Mean Corpuscular Volume 95.6 fL (80.0-100.0); Monocytes # (auto) 0.5 10 ^3/uL (0-1.3); Monocytes % (auto) 9.2 % (0.0-12.0); Neutrophils # (auto) 4.3 10 ^3/uL (1.6-8.6); Neutrophils % (auto) 73.9 % (37.0-80.0); Nucleated Red Blood Cells % 0.1 %; Platelet Count (auto) 105 10^3/uL (140-450); Red Blood Cells 3.35 10^6/uL (4.5-5.90); Red Cell Distribution Width 13.9 % (11.8-14.3); White Blood Cell 5.8 10^3/uL (4.4-10.8)
[2023-12-25 06:10] LABS: Alanine Aminotransferase 15 U/L (7-40); Alkaline Phosphatase 55 U/L (46-116); Anion Gap 7 (5-15); Aspartate Aminotransferase 27 U/L (13-40); BUN/Creatinine Ratio 6.7 (10.0-20.0); Bilirubin, Total 0.5 mg/dL (0.2-1.0); Blood Urea Nitrogen 6 mg/dL (9-23); Calcium 7.9 mg/dL (8.7-10.4); Carbon Dioxide 28 mmol/L (20-30); Chloride 108 mmol/L (98-107); Glucose 171 mg/dL (74-106); Potassium 3.2 mmol/L (3.5-5.1); Sodium 143 mmol/L (136-145); Total Protein 5.2 g/dL (5.7-8.2)
[2023-12-25] MEDS: POTASSIUM EFFERVESENT TAB 25 MEQ PO ONE (11:15)
[2023-12-25] MEDS: AMIODARONE HCL 200 MG TAB PO SCH (22:03)
[2023-12-26] VITALS (15 sets, daily range): BP systolic 126–146; BP diastolic 59–85; PULSE 60–109; RESP 16–20; TEMP 97.6–98.7; O2SAT 95–100
[2023-12-27] VITALS (15 sets, daily range): BP systolic 118–136; BP diastolic 61–83; PULSE 57–108; RESP 18–20; TEMP 97.8–98.7; O2SAT 92–100
[2023-12-28] VITALS (15 sets, daily range): BP systolic 116–139; BP diastolic 77–83; PULSE 52–108; RESP 16–20; TEMP 97.3–99.1; O2SAT 95–100
[2023-12-29] VITALS (15 sets, daily range): BP systolic 124–149; BP diastolic 61–83; PULSE 77–101; RESP 18–20; TEMP 97.2–98.1; O2SAT 94–100
[2023-12-29] MEDS: D5W/SOD CHL 0.45% 1,000 ML IV SCH (16:01)
[2023-12-29 17:13] LABS: Basophils # (auto) 0 10 ^3/uL (0-0.2); Basophils % (auto) 0.4 % (0.0-2.0); Eosinophils # (auto) 0.1 10 ^3/uL (0-0.8); Eosinophils % (auto) 1.9 % (0.0-7.0); Hemoglobin 11.9 g/dL (13.5-17.5); Lymphocytes # (auto) 0.6 10 ^3/uL (0.4-5.4); Lymphocytes % (auto) 7.5 % (10.0-50.0); Mean Corpuscular Hemoglobin 32.9 pg (28.0-32.0); Monocytes # (auto) 0.3 10 ^3/uL (0-1.3); Monocytes % (auto) 4.3 % (0.0-12.0); Neutrophils # (auto) 6.7 10 ^3/uL (1.6-8.6); Neutrophils % (auto) 85.9 % (37.0-80.0); Nucleated Red Blood Cells % 0.1 %; Platelet Count (auto) 213 10^3/uL (140-450); Red Blood Cells 3.61 10^6/uL (4.5-5.90); Red Cell Distribution Width 13.8 % (11.8-14.3); White Blood Cell 7.8 10^3/uL (4.4-10.8)
[2023-12-29 17:40] LABS: Alanine Aminotransferase 12 U/L (7-40); Albumin 3.1 g/dL (3.2-4.8); Alkaline Phosphatase 65 U/L (46-116); Anion Gap 8 (5-15); Aspartate Aminotransferase 24 U/L (13-40); Bilirubin, Total 0.5 mg/dL (0.2-1.0); Carbon Dioxide 28 mmol/L (20-30); Chloride 105 mmol/L (98-107); Glucose 232 mg/dL (74-106); Sodium 141 mmol/L (136-145)
[2023-12-29 17:41] LABS: Total Protein 5.7 g/dL (5.7-8.2)
[2023-12-29 17:50] LABS: BUN/Creatinine Ratio 6.3 (10.0-20.0); Blood Urea Nitrogen < 5 mg/dL (9-23)
[2023-12-29 18:56] LABS: Urine Bacteria FEW /hpf (None Seen); Urine Blood Negative /uL (Negative); Urine Budding Yeast OCCASIONAL /hpf (None Seen); Urine Clarity Clear (Clear); Urine Color Yellow (Yellow); Urine Hyaline Cast FEW /lpf (0 - 2); Urine Mucus FEW (None Seen); Urine Protein, UAD 1+ (Negative); Urine Specific Gravity 1.016 (1.001-1.035); Urine Urobilinogen Normal (Negative); Urine WBC 5 /hpf (0 - 3)
[2023-12-30] VITALS (14 sets, daily range): BP systolic 110–148; BP diastolic 64–91; PULSE 65–110; RESP 16–20; TEMP 97.6–98.7; O2SAT 94–100
[2023-12-30] MEDS: POTASSIUM CHL 20MEQ/100ML 100 ML IV SCH (16:27)
[2023-12-31] VITALS (16 sets, daily range): BP systolic 109–152; BP diastolic 61–79; PULSE 79–108; RESP 16–20; TEMP 97.7–98.9; O2SAT 95–100
[2024-01-01] VITALS (16 sets, daily range): BP systolic 133–156; BP diastolic 72–90; PULSE 78–133; RESP 16–20; TEMP 97.2–98.9; O2SAT 94–100
[2024-01-02] VITALS (14 sets, daily range): BP systolic 130–148; BP diastolic 53–89; PULSE 76–107; RESP 16–20; TEMP 97.5–98.2; O2SAT 94–100
[2024-01-02] MEDS ORDERED: DEXTROSE (50%) 50ML SYRG IV PRN (11:30)
[2024-01-02 12:05] LABS: Basophils # (auto) 0 10 ^3/uL (0-0.2); Basophils % (auto) 0.6 % (0.0-2.0); Eosinophils # (auto) 0.1 10 ^3/uL (0-0.8); Eosinophils % (auto) 2.3 % (0.0-7.0); Hematocrit 36.3 % (41.0-53.0); Hemoglobin 12.3 g/dL (13.5-17.5); Lymphocytes # (auto) 0.7 10 ^3/uL (0.4-5.4); Lymphocytes % (auto) 12.5 % (10.0-50.0); Mean Corpuscular Hemoglobin 32.4 pg (28.0-32.0); Mean Corpuscular Hgb Conc. 33.9 g/dL (32.0-36.0); Mean Corpuscular Volume 95.8 fL (80.0-100.0); Monocytes # (auto) 0.4 10 ^3/uL (0-1.3); Monocytes % (auto) 7.4 % (0.0-12.0); Neutrophils # (auto) 4.1 10 ^3/uL (1.6-8.6); Neutrophils % (auto) 77.2 % (37.0-80.0); Nucleated Red Blood Cells % 0.1 %; Platelet Count (auto) 246 10^3/uL (140-450); Red Blood Cells 3.79 10^6/uL (4.5-5.90); Red Cell Distribution Width 13.9 % (11.8-14.3); White Blood Cell 5.3 10^3/uL (4.4-10.8)
[2024-01-02] MEDS: InsuLIN REG 1unit/0.01ml Soln (100units/ml) SC SCH ×2 (12:17→21:25)
[2024-01-02] MEDS: ACCU-CHEK COMFORT CURVE STRIP VI SCH (12:18)
[2024-01-02 12:32] LABS: Albumin 3.1 g/dL (3.2-4.8); Alkaline Phosphatase 72 U/L (46-116); Anion Gap 5 (5-15); Aspartate Aminotransferase 21 U/L (13-40); Bilirubin, Total 0.7 mg/dL (0.2-1.0); Calcium 8.6 mg/dL (8.7-10.4); Carbon Dioxide 28 mmol/L (20-30); Chloride 103 mmol/L (98-107); Glucose 257 mg/dL (74-106); Potassium 3.2 mmol/L (3.5-5.1); Sodium 136 mmol/L (136-145); Total Protein 5.9 g/dL (5.7-8.2)
[2024-01-02 12:34] LABS: Alanine Aminotransferase 9 U/L (7-40); BUN/Creatinine Ratio 6.8 (10.0-20.0); Blood Urea Nitrogen < 5 mg/dL (9-23)
[2024-01-02] MEDS: POTASSIUM CHL 20MEQ/100ML 100 ML IV SCH (14:57)
[2024-01-02] MEDS: INSULIN LANTUS (GLARGINE) 1 /0.01ml (100units/ml) SC SCH (21:28)
[2024-01-03] VITALS (14 sets, daily range): BP systolic 129–153; BP diastolic 72–104; PULSE 73–103; RESP 16–20; TEMP 97.4–99.1; O2SAT 91–100
[2024-01-03] MEDS: POTASSIUM CHL 20MEQ/100ML 100 ML IV SCH (03:58)
[2024-01-04] VITALS (15 sets, daily range): BP systolic 123–151; BP diastolic 68–96; PULSE 85–104; RESP 16–20; TEMP 98.1–98.2; O2SAT 92–100
[2024-01-04 20:18] LABS: Alanine Aminotransferase 10 U/L (7-40); Albumin 2.9 g/dL (3.2-4.8); Alkaline Phosphatase 69 U/L (46-116); Anion Gap 2 (5-15); Aspartate Aminotransferase 31 U/L (13-40); Bilirubin, Total 0.6 mg/dL (0.2-1.0); Calcium 8.5 mg/dL (8.7-10.4); Carbon Dioxide 28 mmol/L (20-30); Chloride 106 mmol/L (98-107); Glucose 186 mg/dL (74-106); Potassium 3.6 mmol/L (3.5-5.1); Sodium 136 mmol/L (136-145); Total Protein 5.6 g/dL (5.7-8.2)
[2024-01-04 20:19] LABS: BUN/Creatinine Ratio 7.4 (10.0-20.0); Blood Urea Nitrogen < 5 mg/dL (9-23)
[2024-01-05] VITALS (16 sets, daily range): BP systolic 127–150; BP diastolic 75–86; PULSE 57–100; RESP 18–20; TEMP 97.6–99; O2SAT 94–100
[2024-01-05] MEDS: POTASSIUM CHL 20MEQ/100ML 100 ML IV SCH (17:12)
[2024-01-06] VITALS (8 sets, daily range): BP systolic 127–139; BP diastolic 59–86; PULSE 76–92; RESP 16–20; TEMP 97.5–98.4; O2SAT 97–99
== END 2024-01-06 18:25 | disposition hospice, home (50) | DRG 871 ==
LOC: ER 14:30 → EDBD 14:30 → TELE 18:21 → WEST WING 12-21 09:19 → TELE-WESTW 12-22 18:20 → TELE-EAST 12-29 06:30
PROVIDERS: ADMIT Internal Medicine Pulmonary Disease; ATTEND Internal Medicine Cardiovascular Disease
PROC: 02HV33Z Insertion of Infusion Device into Superior Vena Cava, Percutaneous Approach (ICD-10-PCS; principal; 2023-12-21)
PROC: B548ZZA Ultrasonography of Superior Vena Cava, Guidance (ICD-10-PCS; 2023-12-21)
DX: A41.9 Sepsis, unspecified organism (principal); G92.8 Other toxic encephalopathy; N17.9 Acute kidney failure, unspecified; N39.0 Urinary tract infection, site not specified; E87.0 Hyperosmolality and hypernatremia; E87.20 Acidosis, unspecified; D68.69 Other thrombophilia; E86.1 Hypovolemia; E86.0 Dehydration; Z20.822 Contact with and (suspected) exposure to COVID-19; I10 Essential (primary) hypertension; R65.20 Severe sepsis without septic shock; E83.42 Hypomagnesemia; E78.5 Hyperlipidemia, unspecified; E87.6 Hypokalemia; I48.0 Paroxysmal atrial fibrillation; I25.10 Atherosclerotic heart disease of native coronary artery without angina pectoris; F03.90 Unspecified dementia, unspecified severity, without behavioral disturbance, psychotic disturbance, mood disturbance, and anxiety; E11.9 Type 2 diabetes mellitus without complications; Z88.1 Allergy status to other antibiotic agents; E11.21 Type 2 diabetes mellitus with diabetic nephropathy; E11.40 Type 2 diabetes mellitus with diabetic neuropathy, unspecified; Z79.4 Long term (current) use of insulin
CPT/HCPCS: 36415; 36569; 36600; 70450; 71045; 76775; 80048; 80053; 80061; 80307; 81001; 82140; 82306; 82570; 82607; 82746; 82805; 82962; 83036; 83605; 83735; 83930; 83935; 84100; 84295; 84300; 84443; 85025; 85610; 85730; 87040; 87081; 87086; 87088; 87426; 92610; 93005; 93886; 94640; 97110; 97116; 97163; 97530; G0378; J1450; J1815; J2470; J3480; J7042